=== PATIENT | female | born 1975 | race African-American/Black ===

== ENCOUNTER → 2017-01-18 09:18 | Emergency (ER) | payer BC ==
[~2017-01-18 09:18] MED LIST: LOESTRIN 24 PO; RANITIDINE300 MG PO; ZESTORETIC1 TAB PO
== END | disposition home or self-care (01) ==
LOC: ER 09:18
DX: M54.5 Low back pain (principal); I10 Essential (primary) hypertension; E11.9 Type 2 diabetes mellitus without complications; Z79.899 Other long term (current) drug therapy
CPT/HCPCS: 96372; 99283; J1885